=== PATIENT | female | born 1995 | race Caucasian/White ===

== ENCOUNTER 2019-05-28 19:29 | Inpatient (IN) ==
[2019-05-28] MEDS ORDERED: FOSPHENYTOIN 1,000 MG.PE in SODIUM CHLORIDE 0.9% 250 ML IV STA (19:41)
[2019-05-28] MEDS ORDERED: LACTATED RINGERS 1,000 ML IV STA (19:46)
[2019-05-28] MEDS ORDERED: LORazepam 2 MG/1 ML VIAL ONE (19:51)
[2019-05-28] MEDS ORDERED: VECURONIUM 10 MG VIAL IV ONE ×2 (19:52→21:14)
[2019-05-28] MEDS ORDERED: FOSPHENYTOIN 100 MG.PE/2 ML VIAL ONE (19:55)
[2019-05-28 19:56] LABS: Basophils # 0.1 10*3/uL (0.0-0.2); Basophils % 0.4 % (0.0-0.8); Eosinophils # 0.1 10*3/uL (0.0-0.87); Eosinophils % 0.5 % (0.00-10.9); Hematocrit 43.8 VOL% (35.7-47.0); Hemoglobin 15.2 GM/DL (12.0-16.0); Immature Granulocytes % 0.8 %; Immature Granulocytes Absolute 0.14 #; Lymphocytes % 16.2 % (21.3-54.2); Mean Corpuscular HGB Conc 34.7 GM/DL (32-36); Mean Corpuscular Volume 92.4 FL (87-102); Monocytes % 4.1 % (1.7-12.7); Platelet Count 453 T/CUMM (130-400); Red Blood Count 4.74 MC/CUMM (3.8-5.5); Red Cell Distribution Width 12.3 % (9.3-17.3); White Blood Count 18.4 T/CUMM (4-12)
[2019-05-28 20:03] LABS: PT Patient Result 10.5 SECS (9.6-12.2); Partial Thromboplastin Time 22.8 SECS (20.8-36.0)
[2019-05-28 20:23] LABS: Alanine Aminotransferase 30 U/L (13-56); Albumin 3.8 G/DL (3.4-5.0); Alkaline Phosphatase 91 U/L (45-117); Amylase 47 U/L (25-115); Aspartate Amino Transferase 41 U/L (0-37); Blood Urea Nitrogen 13 MG/DL (7-18); Calcium 8.4 MG/DL (8.5-10.1); Glucose 121 MG/DL (74-106); Osmolality,Calculated 273.8 MOS/KG (273-304); Total Protein 7.8 G/DL (6.4-8.3); Troponin I < 0.015 NG/ML (0.00-0.045)
[2019-05-28 20:24] LABS: Estimated Glom Filtration Rate 0 ML/MIN
[2019-05-28] MEDS ORDERED: propofoL 200 MG/20 ML VIAL IV ONE (20:35)
[2019-05-28 20:46] LABS: Apearance,Urine CLEAR (Clear); Bilirubin,Urine Negative (Negative); Blood, Urine Negative (Negative); Glucose,Urine (UA) Negative (Negative); Ketones,Urine Negative (Negative); Nitrite,Urine Negative (Negative); Protein,Urine Negative; RBC,Urine 6 /HPF (0-4); Urine Color Yellow (Yellow); Urine Specific Gravity 1.011 (1.001-1.035); Urine Urobilinogen < 2.0 EU/DL (0.2-1.0); WBC,Urine <1 /HPF (0-6)
[2019-05-28 20:51] LABS: ABG Base Excess -3.1 MMOL/L (-2.5-2.5); ABG HCO3 21.9 MMOL/L (20-26); ABG PCO2 59.7 MM HG (35-48); ABG PH 7.246 (7.35-7.45); ABG TCO2 22.7 MMOL/L (23-27); Allen Test Positive; Pt O2 Delivery Device Ventilator
[2019-05-28 20:57] LABS: Barbiturates Screen,Urine Negative (Negative); Benzodiazepines Screen,Urine Negative (Negative); Cannabinoid Screen,Urine Positive (Negative); Opiate Screen,Urine Negative (Negative); Phencyclidine Screen,Urine Negative (Negative)
[2019-05-28] MEDS ORDERED: ONDANSETRON 4 MG/2 ML VIAL IV STA (21:10)
[2019-05-28] MEDS ORDERED: METOCLOPRAMIDE 10 MG/2 ML VIAL IV STA (21:10)
[2019-05-28] MEDS ORDERED: ONDANSETRON 4 MG/2 ML VIAL IV PRN (21:12)
[2019-05-28] MEDS ORDERED: MORPHINE 4 MG/1 ML VIAL ONE (22:27)
[2019-05-28] MEDS: MORPHINE 4 MG/1 ML VIAL IV PRN (22:28)
[2019-05-28] MEDS: SODIUM CHLORIDE 0.9% 1,000 ML IV SCH (23:25)
[2019-05-29 05:31] LABS: Basophils % 0.2 % (0.0-0.8); Eosinophils % 0.1 % (0.00-10.9); Hematocrit 39.9 VOL% (35.7-47.0); Hemoglobin 13.8 GM/DL (12.0-16.0); Immature Granulocytes % 0.5 %; Immature Granulocytes Absolute 0.09 #; Lymphocytes # 1.4 10*3/uL (1.4-4.0); Lymphocytes % 7.2 % (21.3-54.2); Mean Corpuscular HGB Conc 34.6 GM/DL (32-36); Mean Corpuscular Volume 91.5 FL (87-102); Mean Platelet Volume 10.2 FL (9.6-12.0); Monocytes % 5.1 % (1.7-12.7); Neutrophils % 86.9 % (38.7-73.9); Platelet Count 266 T/CUMM (130-400); Red Blood Count 4.36 MC/CUMM (3.8-5.5); Red Cell Distribution Width 12.1 % (9.3-17.3); White Blood Count 19.3 T/CUMM (4-12)
[2019-05-29 05:39] LABS: Calcium 8.4 MG/DL (8.5-10.1); Osmolality,Calculated 280.1 MOS/KG (273-304)
[2019-05-29 06:43] LABS: ABG Base Excess 1.7 MMOL/L (-2.5-2.5); ABG HCO3 25.9 MMOL/L (20-26); ABG Oxygen Saturation 99.9 % (95-100); ABG PCO2 49.6 MM HG (35-48); ABG PH 7.361 (7.35-7.45); ABG TCO2 24.4 MMOL/L (23-27); Allen Test Positive; Pt O2 Delivery Device Ventilator
[2019-05-29] MEDS ORDERED: PHENYTOIN 100 MG/2 ML VIAL IV SCH (08:00)
[2019-05-29] MEDS ORDERED: ACETAMINOPHEN 500 MG TABLET ONE (09:05)
[2019-05-29] MEDS: ACETAMINOPHEN 500 MG TABLET PO PRN ×2 (09:10→15:47)
[2019-05-29] MEDS: PHENYTOIN ER 100 MG CAPSULE PO SCH ×3 (09:11→21:12)
[2019-05-29] MEDS: SODIUM CHLORIDE 0.9% 1,000 ML IV SCH (12:20)
[2019-05-29] MEDS: MORPHINE 4 MG/1 ML VIAL IV PRN (19:53)
[2019-05-29 20:02] VITALS: BP 115/68
[2019-05-29] MEDS: ONDANSETRON 4 MG/2 ML VIAL IV PRN (22:09)
[2019-05-30] MEDS: SODIUM CHLORIDE 0.9% 1,000 ML IV SCH ×2 (01:29→03:20)
[2019-05-30] MEDS: MORPHINE 4 MG/1 ML VIAL IV PRN ×2 (05:03→10:55)
[2019-05-30] MEDS: PHENYTOIN ER 100 MG CAPSULE PO SCH ×2 (08:34→15:01)
[2019-05-30] MEDS: ONDANSETRON 4 MG/2 ML VIAL IV PRN (10:52)
[2019-05-30] MEDS ORDERED: ONDANSETRON 4 MG/2 ML VIAL IV ONE (13:18)
== END 2019-05-30 16:54 | disposition home or self-care (01) | DRG 101 ==
LOC: EDBD → EDUNIT# → N.ED 19:29 → N.EDINP 21:11 → N.ICU 21:25
PROVIDERS: ADMIT Student in an Organized Health Care Education/Training Program; ATTEND Student in an Organized Health Care Education/Training Program